=== PATIENT | female | born 1985 | race Caucasian/White ===

== ENCOUNTER 2016-04-09 15:54 | Outpatient (CLI) | payer SELFPAY ==
[~2016-04-09] VITALS: Ht 162.6 cm; Wt 68.9 kg
[~2016-04-09 15:54] MED LIST: FERR27TA
[2016-04-09 16:33] VITALS: Ht 162.6 cm; Wt 68.9 kg
[2016-04-09] MEDS ORDERED: PRENAT PO (16:33)
[2016-04-09 16:34] VITALS: BP 104/55; PULSE 75; RESP 18
--- NOTE | 2016-04-09 18:19 | RADRPT ---
PROCEDURE: Limited obstetric ultrasound CLINICAL INDICATION: distress TECHNIQUE: Multiple transverse and longitudinal grayscale images of the pelvis were obtained deshpande sabdominally and endovaginally.. COMPARISON: same day FINDINGS: There is a single live intrauterine gestation in a breech position with a heart rate of 146 bp m. The cervix is closed and measures 3.8 cm in length. RPTAT: AA IMPRESSION: The cervix is closed and measures 3.8 cm in length. Monroe Roberts Physician Date Time Electronically viewed and signed by Monroe Roberts Physician on 04/09/2016 18:19 /
[2016-04-09 18:30] LABS: ADD UMIC YES; URINE BILIRUBIN (Dip) NEGATIVE (NEGATIVE); URINE BLOOD (Dip) 1+ (NEGATIVE); URINE COLOR LT. YELLOW (YELLOW); URINE GLUCOSE (Dip) NEGATIVE (NEGATIVE); URINE KETONES (Dip) NEGATIVE (NEGATIVE); URINE LEUKOCYTE ESTERASE (Dip) NEGATIVE (NEGATIVE); URINE NITRITE (Dip) NEGATIVE (NEGATIVE); URINE TOTAL PROTEIN (Dip) NEGATIVE (NEGATIVE); URINE UROBILINOGEN (Dip) 0.2 E.U./dL (0.1-1.0)
[2016-04-09 19:00] LABS: BACTERIA,URINE FEW; SQUAMOUS EPITHELIAL CELL,UR FEW
--- NOTE | 2016-04-09 20:57 | TRIAGE ---
OB Triage Datetime Report Generated by CPN: 04/09/2016 20:56 Datetime: 04/09/2016 18:00 Labor Evaluation Frequency: 0 Monitor Mode: External Duration (sec)2399: 0 [address] T[address] [place]: Relaxed Monitor Mode: External US Datetime: 04/09/2016 17:00 Labor Evaluation Frequency: 0 Monitor Mode: External Duration (sec)2399: 0 Resting Tone [place]: Relaxed Monitor Mode: OFF MONITOR Datetime: 04/09/2016 16:45 EGA: 22.2 Datetime: 04/09/2016 16:29 Stage of : OB Triage Maternal Assessment Level of Consciousness: Fully Conscious DTR's/Clonus: DTRs 2+; No Clonus Headache: Denies Blurred Vision: No Respiratory Effort: Unlabored Breath Sounds, Left: Clear and Equal Breath Sounds, Right: Clear and Equal Nausea/Vomiting: Denies RUQ Epigastric Pain: Denies Facial Edema: None Labor Evaluation Frequency: 0 Monitor Mode: External Duration (sec)2399: 0 [address] T[address] [place]: Relaxed Heart Rate FHR Baseline Rate: 150 Monitor Mode: External US FHR Baseline Changes: No Baseline Change Variability: Minimal - Undetectable to <=5 bpm Accelerations: None Decelerations: None Category: Category II Vaginal Exam Membrane Status: Intact Datetime: 04/09/2016 16:20 Time of Arrival: 04/09/2016 15:50 Arrived By: Ambulatory Arrived From: Home Chief Complaint: DFM Movement: Present Contractions: Denies/Absent Rupture of Membranes: Denies Vaginal Bleeding: None Vaginal Discharge: Denies Recent Sexual Intercouse: Denies Abdominal Trauma: Not Applicable Patient Complaints: None Time Provider Notified: 04/09/2016 16:44 Provider Notified: NAYLA
== END 2016-04-09 19:13 | disposition home or self-care (01) ==
LOC: OBT 15:54 → L-D 15:56 → OBT 19:13
PROVIDERS: ATTEND Obstetrics & Gynecology
DX: O60.02 Preterm labor without delivery, second trimester (principal); Z3A.22 22 weeks gestation of pregnancy
CPT/HCPCS: 76817; 81001; G0463; 81003

== ENCOUNTER 2016-08-03 20:11 | Outpatient (CLI) | payer MEDICAID ==
[~2016-08-03] VITALS: Ht 152.4 cm; Wt 70.7 kg
[~2016-08-03 20:11] MED LIST changes: -FERR27TA; +PRENAT PO
[2016-08-03 20:29] VITALS: BP 111/61; PULSE 77; RESP 18; Ht 152.4 cm; Wt 70.7 kg
--- NOTE | 2016-08-03 21:10 | RADRPT ---
PROCEDURE: US OB. CLINICAL INDICATION: Contractions. Uncertain dates. TECHNIQUE: Multiple sonographic images of the uterus were obtained. The images were revi ewed on a PACS workstation. COMPARISON: No prior studies are available for comparison. FINDINGS: There is a single live intrauterine gestation. heart rate is 146 beats per minute. Measurements were made in order to determine age. The results are as follows: BPD = 9.51 cm. HC = 33.81 cm. AC = 34.98 cm. FL = 7.61 cm. Estimated weight is 3620 +/- 543 grams. LMP growth percentile is 69 %. Menstrual age by ultrasound dates is 38 weeks 6 days. The estimated date of delivery is 09/07/2016. Position is cephalic and placenta is anterior grade II. There is no evidence for an abruption or jordan centa previa. IMPRESSION: 1. Single live intrauterine gestation of 38 weeks 6 days menstrual age by ultrasound dates. 2. The estimated date of delivery is 09/07/2016. RPTAT: QQ .Db Naylor MD, Date Time Electronically viewed and signed by .Db Naylor MD, on 08/03/2016 21:10 .R/
--- NOTE | 2016-08-03 21:30 | RADRPT ---
PROCEDURE: US biophysical profile. CLINICAL INDICATION: Contractions. Decreased motion. TECHNIQUE: Multiple sonographic images of the uterus were obtained. The images were revi ewed on a PACS workstation. COMPARISON: No prior studies are available for comparison. FINDINGS: There is a single live intrauterine gestation. heart rate is 152 beats per minute. The position is cephalic. The placenta is anterior grade II with no abruption or previa. The JULIANNA is 13.5 cm. (Normal = 5-20 cm.) Breathing Movement: 2 Gross Body Movement: 2 Tone: 2 Qualitative Amniotic Fluid Volume: 2 TOTAL: 8 IMPRESSION: 1. The biophysical score is 8/8. RPTAT: QQ .Db Naylor MD, MD Date Time Electronically viewed and signed by .Db Naylor MD, on 08/03/2016 21:30 .R/
[2016-08-03 22:11] LABS: ADD UMIC YES; URINE BILIRUBIN (Dip) NEGATIVE (NEGATIVE); URINE BLOOD (Dip) 1+ (NEGATIVE); URINE COLOR LT. YELLOW (YELLOW); URINE GLUCOSE (Dip) NEGATIVE (NEGATIVE); URINE KETONES (Dip) NEGATIVE (NEGATIVE); URINE LEUKOCYTE ESTERASE (Dip) NEGATIVE (NEGATIVE); URINE NITRITE (Dip) NEGATIVE (NEGATIVE); URINE TOTAL PROTEIN (Dip) NEGATIVE (NEGATIVE); URINE UROBILINOGEN (Dip) 0.2 E.U./dL (0.1-1.0)
[2016-08-03 22:23] LABS: SQUAMOUS EPITHELIAL CELL,UR MODERATE
--- NOTE | 2016-08-03 22:34 | TRIAGE ---
OB Triage Datetime Report Generated by CPN: 08/03/2016 22:33 Datetime: 08/03/2016 22:00 Labor Evaluation Frequency: IRREGULAR Monitor Mode: External Duration (sec)2399: 60-100 Quality: Mild Pattern: Normal: <= 5 Contractions in 10 Minutes Resting Tone [place]: Relaxed Heart Rate FHR Baseline Rate: 145 Monitor Mode: External US FHR Baseline Changes: No Baseline Change Variability: Moderate 6-25 bpm Accelerations: 15X15 Decelerations: None Category: Category I Datetime: 08/03/2016 20:56 Labor Evaluation Frequency: 1-2 Monitor Mode: External Duration (sec)2399: 60-100 Quality: Mild Pattern: Normal: <= 5 Contractions in 10 Minutes Resting Tone [place]: Relaxed Heart Rate FHR Baseline Rate: 145 Monitor Mode: External US FHR Baseline Changes: No Baseline Change Variability: Moderate 6-25 bpm Accelerations: 15X15 Decelerations: None Category: Category I Datetime: 08/03/2016 20:23 Stage of : OB Triage Assessment Type: Triage Arrived By: Wheelchair Arrived From: Home Chief Complaint: CONTRACTIONS STARTED @ 1600 Movement: Present Contractions: Irregular Time Contractions Began: 08/03/2016 16:00 Rupture of Membranes: Denies Vaginal Bleeding: None Vaginal Discharge: Denies Recent Sexual Intercouse: Denies Abdominal Trauma: Not Applicable Patient Complaints: None Time Provider Notified: 08/03/2016 20:39 Provider Notified: DR WINSLOW Initial Plan: CALL AMIRAH RANDALL Maternal Assessment Level of Consciousness: Fully Conscious DTR's/Clonus: DTRs 2+; No Clonus Headache: Denies Blurred Vision: No Respiratory Effort: Unlabored; Regular Rhythm; Equal Expansion Breath Sounds, Left: Clear and Equal Breath Sounds, Right: Clear and Equal Nausea/Vomiting: Denies RUQ Epigastric Pain: Denies Lower Extremities Edema: None Degree: None Upper Extremities Edema: None Degree: None Facial Edema: None Temperature Route: Oral Fall Risk Assessment History of Falling: (0) No Secondary Diagnosis: (0) No Ambulatory Aid: (0) Bedrest/Nurse Assist IV Therapy: (0) No Gait: (0) Normal/Bedrest/Immobile Mental Status: (0) Oriented to Own Ability Fall Score: 0 Fall Risk Score Definition: No Risk: No action required Monitor Mode: External Monitor Mode: External US Pain Assessment Pain Scale: 4 Pain Presence: Intermittent Pain Type: Contraction Pain Location: Abdomen; Back Vaginal Exam Dilatation (cms): 1.5 Effacement (%): 50 Station: -3 Exam By: Esteban SCHWARZ RN Membrane Status: Intact Datetime: 04/09/2016 16:45 EGA: 22.2
--- NOTE | 2016-08-04 06:55 | QN ---
Documentation Comment iup 38 weeks co ucx vss exam wnl us wnl nst reactive a/p iup 38 weeks false labor dc home JOSE JOYA MD August 04, 2016 06:55
== END 2016-08-03 22:25 | disposition home or self-care (01) ==
LOC: OBT 20:11 → L-D 20:11 → OBT 22:25
PROVIDERS: ATTEND Obstetrics & Gynecology
DX: O62.9 Abnormality of forces of labor, unspecified (principal); Z3A.38 38 weeks gestation of pregnancy
CPT/HCPCS: 76815; 76818; 81001; Z7500; G0463

== ENCOUNTER 2016-08-14 02:20 | Inpatient (IN) | payer MEDICAID ==
[~2016-08-14] VITALS: Ht 152.4 cm; Wt 71.6 kg
[2016-08-15 00:10] VITALS: Ht 152.4 cm; Wt 71.6 kg
[2016-08-15] MEDS ORDERED: FERR325C PO (00:10)
[2016-08-15 00:11] VITALS: BP 120/62; PULSE 70; RESP 18
[2016-08-15] MEDS ORDERED: IBUPROFEN 600 MG TAB PO PRN (00:30)
[2016-08-15] MEDS ORDERED: LIDOCAINE 1% (MPF) 30 ML INJ INJ PRN (00:30)
[2016-08-15] MEDS ORDERED: OXYTOCIN 30 UNITS/LR 500 ML IV SCH ×3 (00:30→19:30)
[2016-08-15] MEDS ORDERED: MISOPROSTOL 200 MCG TAB PR PRN (00:30)
[2016-08-15] MEDS ORDERED: OXYTOCIN 30 UNITS/LR 500 ML IV PRN (00:30)
[2016-08-15] MEDS ORDERED: BUTORPHANOL 2 MG INJ IV PRN (00:30)
[2016-08-15] MEDS ORDERED: AMPICILLIN 2 GM/NS (PMX) 100 ML IV ONE (00:30)
[2016-08-15] MEDS ORDERED: CARBOPROST 250 MCG INJ IM PRN (00:30)
[2016-08-15] MEDS ORDERED: METHYLERGONOVINE 0.2 MG INJ IM PRN (00:30)
[2016-08-15] MEDS ORDERED: LACTATED RINGER'S 1,000 ML IV PRN (00:30)
[2016-08-15] MEDS: LACTATED RINGER'S 1,000 ML IV SCH ×4 (00:43→13:53)
[2016-08-15 00:53] LABS: ADD SCAN DIFF NO
[2016-08-15 00:56] LABS: BASOPHILS % 0.1 % (0.0-2.0); EOSINOPHILS % 0.3 % (0.0-7.0); HEMATOCRIT 31.7 % (37.0-47.0); HEMOGLOBIN 11.2 g/dl (12.0-16.0); LYMPHOCYTES # 1.5 10^3/ul (0.8-2.9); LYMPHOCYTES % 21.9 % (15.0-51.0); MEAN CORPUSCULAR HEMOGLOBIN 31.5 pg (29.0-33.0); MEAN CORPUSCULAR HGB CONC 35.3 g/dl (32.0-37.0); MEAN PLATELET VOLUME 9.7 fl (7.4-10.4); MONOCYTE # 0.4 10^3/ul (0.3-0.9); MONOCYTES % 6.1 % (0.0-11.0); NEUTROPHIL # 4.8 10^3/ul (1.6-7.5); NEUTROPHILS % 71.3 % (39.0-77.0); PLATELET COUNT 153 10^3/UL (140-415); RED BLOOD COUNT 3.56 10^6/ul (4.20-5.40); WHITE BLOOD COUNT 6.8 10^3/ul (4.8-10.8)
--- NOTE | 2016-08-15 01:14 | TRIAGE ---
OB Triage Datetime Report Generated by CPN: 08/15/2016 01:14 Datetime: 08/15/2016 00:50 Stage of : OB Triage Labor Evaluation Frequency: 2-3 Monitor Mode: External Duration (sec)2399: 60-80 Quality: Moderate Pattern: Normal: <= 5 Contractions in 10 Minutes Resting Tone [place]: Relaxed Heart Rate FHR Baseline Rate: 140 Monitor Mode: External US FHR Baseline Changes: No Baseline Change Variability: Moderate 6-25 bpm Accelerations: 15X15 Decelerations: None Category: Category I Datetime: 08/15/2016 00:30 Stage of : OB Triage Labor Evaluation Frequency: 2-2.5 Monitor Mode: External Duration (sec)2399: 40-80 Quality: Moderate Pattern: Normal: <= 5 Contractions in 10 Minutes Resting Tone [place]: Relaxed Heart Rate FHR Baseline Rate: 140 Monitor Mode: External US Variability: Moderate 6-25 bpm Accelerations: 15X15 Decelerations: None Category: Category I Datetime: 08/15/2016 00:00 Stage of : OB Triage Labor Evaluation Frequency: 1.5-5 Monitor Mode: External Duration (sec)2399: 50-90 Quality: Moderate Pattern: Normal: <= 5 Contractions in 10 Minutes Resting Tone [place]: Relaxed Heart Rate FHR Baseline Rate: 130 Monitor Mode: External US Variability: Moderate 6-25 bpm Accelerations: 15X15 Decelerations: None Category: Category I Datetime: 08/14/2016 23:52 Stage of : OB Triage Datetime: 08/14/2016 23:41 Vaginal Exam Dilatation (cms): 4.0 Effacement (%): 50 Station: -3 Exam By: NATALIE Fernandez Membrane Status: Intact Vaginal Bleeding: None Cervix, Consistency: Moderate Cervix, Position: Posterior Presentation 'A': Cephalic Datetime: 08/14/2016 23:33 Stage of : OB Triage Assessment Type: Triage Maternal Assessment Level of Consciousness: Fully Conscious DTR's/Clonus: DTRs 2+; No Clonus Headache: Occipital (Annotations: When has uc) Blurred Vision: No Respiratory Effort: Unlabored; Regular Rhythm; Equal Expansion Breath Sounds, Left: Clear and Equal Breath Sounds, Right: Clear and Equal Nausea/Vomiting: Denies RUQ Epigastric Pain: Denies Lower Extremities Edema: Bilateral Lower Extremities Degree: 1+ (Annotations: Very mild. More in left leg.) Upper Extremities Edema: None Degree: None Facial Edema: None Temperature Route: Oral Fall Risk Assessment History of Falling: (0) No Secondary Diagnosis: (0) No Ambulatory Aid: (0) Bedrest/Nurse Assist IV Therapy: (0) No Gait: (0) Normal/Bedrest/Immobile Mental Status: (0) Oriented to Own Ability Fall Score: 0 Fall Risk Score Definition: No Risk: No action required Pain Assessment Pain Scale: 7 Pain Presence: Intermittent Pain Type: Cramping; Contraction Pain Location: Abdomen; Back Pain Relief Measures: Comfort Measures Datetime: 08/14/2016 23:31 Time of Arrival: 08/14/2016 23:22 EGA: 39.5 Arrived By: Ambulatory Arrived From: Home Chief Complaint: UCs [id number] Movement: Present Contractions: Irregular Time Contractions Began: 08/14/2016 18:00 Contractions: [id number] Rupture of Membranes: Denies Vaginal Bleeding: None Vaginal Discharge: Present Abdominal Trauma: Not Applicable Patient Complaints: Contractions; Cramping; Back Pain Time Provider Notified: 08/14/2016 23:52 Provider Notified: Initial Plan: EFM x2, VE Datetime: 08/03/2016 20:23 Fall Score: 0 Fall Risk Score Definition: No Risk: No action required Datetime: 04/09/2016 16:45 EGA: 21.4
[2016-08-15 01:26] LABS: INR 0.94; PARTIAL THROMBOPLASTIN TIME 27.5 Sec (25.0-35.0); PROTIME 12.6 Sec (12.2-14.2)
[2016-08-15] MEDS ORDERED: LACTATED RINGER'S 1,000 ML IV ONE (02:08)
[2016-08-15] MEDS ORDERED: ONDANSETRON 4 MG INJ ONE (02:11)
[2016-08-15] MEDS ORDERED: CITRIC ACID/SODIUM CITRATE 15 ML CUP ONE (02:11)
[2016-08-15] MEDS ORDERED: PROCHLORPERAZINE 10 MG INJ IV PRN (02:30)
[2016-08-15] MEDS ORDERED: CITRIC ACID/SODIUM CITRATE 15 ML CUP PO ONE (02:30)
[2016-08-15] MEDS ORDERED: ONDANSETRON 4 MG INJ IV PRN (02:30)
[2016-08-15] MEDS ORDERED: DIPHENHYDRAMINE 50 MG INJ IV PRN (02:30)
[2016-08-15] MEDS ORDERED: NALOXONE (0.4 MG/ML) INJ IV PRN (02:30)
[2016-08-15] MEDS ORDERED: morphine 2 MG INJ IV PRN ×2 (02:30)
[2016-08-15] MEDS ORDERED: ONDANSETRON 4 MG INJ IV ONE (02:30)
[2016-08-15] MEDS ORDERED: KETOROLAC 30 MG INJ IV PRN (02:30)
[2016-08-15] MEDS: FENTAnyl 2MCG/ML-ROPIV 0.2% 100 ML BAG EPI SCH ×3 (03:03→18:41)
[2016-08-15] MEDS ORDERED: MINERAL OIL LIGHT 10 ML VIAL TOP PRN (03:30)
[2016-08-15] MEDS ORDERED: AMPICILLIN 1 GM/NS (PMX) 50 ML IV SCH (04:30)
--- NOTE | 2016-08-15 21:05 | HP ---
Date/Time of Note Date/Time of Note DATE: 08/15/16 TIME: 21:01 OB - History Hx of Present Free Text/Dictation admitted for labor at term Last Menstrual Period: Nov 10, 2015 Estimated Due Date: Aug 16, 2016 : 5 Para: 4 Care: Good Care Ultrasounds: Normal mid trimester US Past Family/Social History * Past Medical, Surgical, Family and Obstetric Histories reviewed from chart. Blood Type: A- Rubella: immune RPR/VDRL: Negative GBS Status: Negative HBsAG: Negative OB Admission Exam Vital Signs Vital Signs Vital Signs Date Time Temp Pulse Resp B/P Pulse Ox O2 Delivery O2 Flow Rate FiO2 08/15/16 00:11 98.0 70 18 120/62 Room Air Physical Exam HEENT: WNL Heart: Rhythm Normal Lungs: Clear, Equal Abdomen: WNL Extremities: Normal Reflexes: Normal Cervical Dilatation: 4cm Effacement: 75% Station: -3 Membranes: Intact Heart Rate: 140's Accelerations: Accelerations Present Decelerations: No Decelerations Varibility: Marked Contractions on Admission: None Date/Time Contractions Began: 08/2016 Frequency of Contractions: Q 5 Duration: >60 seconds Intensity: Mild Last 72 hours Lab Results CBC & BMP 08/15/16 00:41 OB Assessment/Plan Other Assessment: term gestation labor pains Other plan: proceed with labor MARY RUST MD Aug 15, 2016 21:05
--- NOTE | 2016-08-15 21:07 | LDN ---
Date/Time of Note Date/Time of Note DATE: 08/15/16 TIME: 21:05 Delivery Summary of a viable infant over intact perineum Weeks of Gestation 39+ Placenta Delivered: Spontaneously, Intact & Complete Meconium: none Episiotomy: No Perineal laceration: 0 Anesthesia type: Epidural Estimated blood loss: 300 Sponge & Needle done & correct: Yes All needle counts correct: Yes Any foreign bodies felt in the: No Problems: Delivery Information Sex Sex: female Apgars 1 Minute: 9 5 Minute: 9 Suctioning Nose & mouth suctioned at tristan: Yes Delee suction performed: No Umbilical Cord Umbilical cord with: 3 Vessels Cord presentations: no nuchal cord Cord Blood was obtained: Yes Mother & Baby Disposition Disposition Mom & Baby to Maternity; Good: Yes (mother and baby were recovered in good condition ) Mom transferred to: Other (maternity ) Baby to NICU: No MARY RUST MD Aug 15, 2016 21:07
--- NOTE | 2016-08-15 22:15 | QN ---
Documentation Comment Late entry note I was asked by primary OB Dr. Phillips to do AROM for this patient that has been already in labor. Went to the patient bedside. Patient already received epidural and quite comfortable. Denies any complaint. NST reviewed: Category 1. Had one episode of deep variable deceleration lasting about a minute and resolved. Overall has good variability occasional rare small variables Sterile vaginal examination: 4-5 centimeter/60/--1 vertex. AROM done, clear fluid noted continue to monitor Anticipate Patient will be managed by her primary OB YESSENIA REID MD Aug 15, 2016 22:15
[2016-08-15 23:15] VITALS: BP 117/68; PULSE 56; RESP 18
[2016-08-16] MEDS ORDERED: OXYTOCIN 30 UNITS/LR 500 ML IV PRN
[2016-08-16] MEDS ORDERED: CARBOPROST 250 MCG INJ IM PRN
[2016-08-16] MEDS ORDERED: METHYLERGONOVINE 0.2 MG INJ IM PRN
[2016-08-16] MEDS ORDERED: ACETAMINOPHEN/CODEINE #3 TAB PO PRN ×2
[2016-08-16] MEDS ORDERED: BENZOCAINE 20% 56 ML SPRAY TOP PRN
[2016-08-16] MEDS ORDERED: LANOLIN 7 GM TUBE TOP PRN
[2016-08-16] MEDS ORDERED: ZOLPIDEM 5 MG TAB PO PRN
[2016-08-16] MEDS ORDERED: DIBUCAINE 1% 30 GM OINT PR PRN
[2016-08-16] MEDS ORDERED: WITCH HAZEL/GLYCERIN PAD PR PRN
[2016-08-16] MEDS ORDERED: MISOPROSTOL 200 MCG TAB PR PRN
[2016-08-16] MEDS: IBUPROFEN 600 MG TAB PO SCH ×5 (00:34→23:20)
[2016-08-16] MEDS: CEPHALEXIN 500 MG CAP PO SCH ×5 (00:34→23:20)
[2016-08-16] MEDS: LACTATED RINGER'S 1,000 ML IV* SCH ×3 (01:17→15:37)
[2016-08-16 04:00] VITALS: BP 116/61; PULSE 67; RESP 17
[2016-08-16 07:29] LABS: ADD SCAN DIFF NO
[2016-08-16 07:33] LABS: BASOPHILS % 0.2 % (0.0-2.0); EOSINOPHILS # 0.1 10^3/ul (0.0-0.5); EOSINOPHILS % 0.5 % (0.0-7.0); HEMOGLOBIN 11.3 g/dl (12.0-16.0); LYMPHOCYTES # 2.2 10^3/ul (0.8-2.9); LYMPHOCYTES % 22.5 % (15.0-51.0); MEAN CORPUSCULAR HGB CONC 34.2 g/dl (32.0-37.0); MEAN CORPUSCULAR VOLUME 90.4 fl (82.0-101.0); MEAN PLATELET VOLUME 10.1 fl (7.4-10.4); MONOCYTE # 0.5 10^3/ul (0.3-0.9); MONOCYTES % 5.3 % (0.0-11.0); NEUTROPHIL # 7.1 10^3/ul (1.6-7.5); NEUTROPHILS % 71.2 % (39.0-77.0); PLATELET COUNT 155 10^3/UL (140-415); RED BLOOD COUNT 3.65 10^6/ul (4.20-5.40)
--- NOTE | 2016-08-16 09:02 | OPPN ---
Date/Time of Note Date/Time of Note DATE: 08/16/16 TIME: 09:01 Anesthesia Follow up Anesthesia Follow up Last documented vital signs Vital Signs Date Time Temp Pulse Resp B/P Pulse Ox O2 Delivery O2 Flow Rate FiO2 08/16/16 04:00 98.5 67 17 116/61 Room Air Respiratory function: WNL Cardiovascular function: WNL Comments 31 yo F s/p with labor epidural. Pt is doing well, VSS, A&Ox3, site c/d/i, no erythema, TTP, exudate, no PDPH sx, tolerating diet, no issues. CAMDEN OLIVEIRA MD Aug 16, 2016 09:02
[2016-08-16] MEDS: MAGNESIUM HYDROXIDE 30ML CUP PO SCH ×2 (09:38→20:04)
[2016-08-16] MEDS: SENNA/DOCUSATE NA (8.6MG/50MG) TAB PO SCH ×2 (09:38→20:04)
[2016-08-16 09:40] VITALS: BP 113/64; PULSE 52; RESP 16
--- NOTE | 2016-08-16 13:40 | DS ---
Date/Time of Note Date/Time of Note home next day DATE: 08/16/16 TIME: 13:38 Obstetrical Discharge Record Final Diagnosis Final Diagnosis: Term delivered Other Final Diagnosis S/P vaginal delivery Vaginal Delivery Obstetrical Delivery: Spontaneous Complications Augmentation: Yes Condition on Discharge Physical Assessment Last Vitals: see nurses notes Voiding: Yes Bowel Movement: Yes Breast: Soft, non-tender, Filling Fundus: Firm Abdomen and Incision: soft bs + Episiotomy: NA Calf Tenderness: No Patient Condition: Good MARY RUST MD Aug 16, 2016 13:40
--- NOTE | 2016-08-16 13:41 | PD.PPDC ---
CLAIMS CLERK Discharge Instruction Provider Information Physician Information 31 y/o female had vaginal delivery Diagnosis Final Diagnosis: S/P vaginal delivery Condition Patient Condition: Good Diet Diet: Resume Regular Diet Activity/Restrictions Activity: Normal Activity May Shower Restrictions: Nothing in the Vagina Return to Work or School: Oct 01, 2016 Follow-up Follow-up with Physician: 4, Week/Weeks (in clinic) Return to clinic for OB Instructions: Breast Tenderness Depression MARY RUTS MD Aug 16, 2016 13:41
[2016-08-16] MEDS ORDERED: IBUP-1542 PO (13:42)
[2016-08-16 16:00] VITALS: BP 103/72; PULSE 57; RESP 18
[2016-08-16 20:05] VITALS: BP 105/61; PULSE 63; RESP 18
[2016-08-17 04:10] VITALS: BP 98/53; PULSE 84; RESP 17
[2016-08-17] MEDS: CEPHALEXIN 500 MG CAP PO SCH ×2 (05:33→12:02)
[2016-08-17] MEDS: IBUPROFEN 600 MG TAB PO SCH ×2 (05:33→12:02)
[2016-08-17 08:40] VITALS: BP 113/73; PULSE 54; RESP 16
[2016-08-17] MEDS: MAGNESIUM HYDROXIDE 30ML CUP PO SCH (09:00)
[2016-08-17] MEDS ORDERED: VARICELLA VACCINE LIVE/PF 1,350 UNIT/0.5 ML ML SC* ONE (09:00)
[2016-08-17] MEDS ORDERED: DIPHTH/TET/ACEL PERTUSS (ADULT) 0.5 ML VIAL IM* ONE (09:00)
[2016-08-17] MEDS: SENNA/DOCUSATE NA (8.6MG/50MG) TAB PO SCH (09:00)
[2016-08-17] MEDS ORDERED: MEASLES,MUMPS,RUBELLA VACCINE INJ SC* ONE (09:00)
== END 2016-08-17 14:05 | disposition home or self-care (01) | DRG 775 ==
LOC: OBT 02:20 → L-D 23:20 → OBT 23:52 → L-D 23:52 → PP1 08-15 23:07
PROVIDERS: ADMIT Obstetrics & Gynecology; ATTEND Obstetrics & Gynecology
PROC: 10E0XZZ Delivery of Products of Conception, External Approach (ICD-10-PCS; principal; 2016-08-15)
DX: O76 Abnormality in fetal heart rate and rhythm complicating labor and delivery (principal); Z37.0 Single live birth; Z3A.39 39 weeks gestation of pregnancy
CPT/HCPCS: 36415; 62319; 85025; 85610; 85730; 86592; 86850; 86870; 86885; 86900; 86901; 87340; 90715; 90716; G0463; J0290; J2210; J2405; J2590; J2790; J3010; J7120